=== PATIENT | female | born 1945 | race Caucasian/White ===

== ENCOUNTER 2017-04-13 00:27 | Emergency (ER) | payer MEDICARE, BC ==
[~2017-04-13] VITALS: Ht 167.6 cm; Wt 81.2 kg
[~2017-04-13 00:27] MED LIST: AMARYL 4MG. TAB4 MG PO; ASPIRIN 325MG325 MG PO; CARAFATE1 GM PO; FERROUS SULFAT325 M2 PO; FUROSEMIDE 20MG20 MG FT; GABAPENTIN100 MG PO; HYDROCHLOROTHIA25 M1 PO; LISINOPRIL 20MG20 MG; METFORMIN 500M500 M1 PO; OMEPRAZOLE40 MG PO; PIOGLITAZONE45 MG; PIOGLITAZONE45 MG PO; PRADAXA75 M1 PO
[2017-04-13 00:30] VITALS: BP 182/79
[2017-04-13] MEDS ORDERED: HCTZ/TRIAMTEREN1 CAP PO (00:45)
[2017-04-13] MEDS ORDERED: AMLO5TAB PO (00:46)
[2017-04-13] MEDS ORDERED: PRAVASTATIN SOD10 MG PO (00:46)
--- NOTE | 2017-04-13 01:15 | Emergency Room Report ---
History of Present Illness Time Seen by [id number] Presenting Problem in Triage Pt arrived:Walked Presenting Problem:C/O CANT TALK AND COUGH. STATES I FEEL FINE. ALSO SAYS SINCE IM HERE I HURT MY FOOT ON DAY, WALKING ACROSS THE FLOOR HEARD SOMETHING POP IN MY FOOT. SON ALSO STATES SHE HAS HAD TWO EPISODES OF AFTER EATING THEN HAVING ABDOMINAL PAIN THEN VOMITING WITH LAST EPISODE ON . Onset of symptoms date/time:/ or onset unknown for:MEDICAL HX UNKNOWN Treatment Prior to Arrival: TECHNICAL SPEC Provided by: Sepsis Risk Assessment: Temp: 97.9 B/P: 182/79 MAP: 113 Pulse: 103 Resp: 20 Recent fever? N Clinical Suspician of Infection? N Mental Status: 1 - Regular (Normal Baseline) Sepsis Risk:Possible Sepsis Risk Have you (or family members/close friends) recently traveled outside the [place]? N If Yes, where/when: Have you had exposure to infectious disease within the past month? N TB? Other? Specify: Source patient, RN notes reviewed, family, RN/MD Exam Limitations no limitations Comment This is a 71-year-old lady arriving to the emergency room together with her son with multiple complaints. She has a hoarse voice, since before (x4 days) without any associated productive cough or shortness of breath. She also had an episode of nausea and vomiting after eating a larger holiday meal, at , which is concerning to her. Additionally for the past 4 days she is also having LEFT foot pain, nontraumatic. Patient advised that she was walking across her kitchen and she heard a "cracking noise", fearful of possible fracture. ALLERGIES Coded Allergies: No Known Allergies (08/23/15) Home Medications Reported Medications Furosemide (Furosemide) 20 MG FT DAILY #30 Omeprazole (Omeprazole 40MG) 40 MG PO DAILY #30 Sucralfate (Carafate) 1 GM PO ACHS #120 Glimepiride (Amaryl 4MG) 4 MG PO DAILY LISINOPRIL (Lisinopril) PIOGLITAZONE HCL (Pioglitazone HCl) 45 MG PO DAILY #90 Gabapentin (Gabapentin 100MG) 100 MG PO DAILY #90 CAPSULE Metformin HCl (Metformin) 500 MG PO QHS Ferrous Sulfate (Ferrous Sulfate 325MG) 325 MG PO BID DABIGATRAN ETEXILATE MESYLATE (Pradaxa) 75 MG PO BID Hydrochlorothiazide W/Triamter (Triamterene-Hctz 37.5-25 MG Tb) 1 CAP PO DAILY #45 Pravastatin Sodium 10 MG PO BEDTIME #90 Amlodipine Besylate (Amlodipine) 5 MG PO DAILY #90 History Medical History General CAD? No Angina: No NM: No Hypertension? Yes Hyperlipidemia? No CHF? No DVT? No PE? No COPD? No Asthma? No Anemia? No GERD? Yes Gastric ulcers? No GI Bleed? Yes Hernia? No Thyroid Problems? No Hypothyroidism? No CVA? No Seizures? No Diabetes? Yes Insulin Dependent: No Insulin Pump: No Home FSBS? Yes Renal Insuffiency? No End Stage Renal Disease? No UTI? No Stones? No GB Disease: No Nephritic Syndrome? No Asplenia? No Hepatitis? No Sickle Cell Disease? No Arthritis? No Migraines? No Cataracts? No Glaucoma? No MRSA? No HIV? No TB? No Anxiety? No Depression? No Cancer? No More? Yes Additional hx: LEAKING VALVE Immunization Hx DT/Tetanus UNKNOWN Surgical Hx Previous Surgery?Y Cholecystectomy HYSTERECTOMY Social History Smoking Hx Smoker: Former Smoker Tobacco: No Packs/day < 1 Pack Alcohol Alcohol: No Review of Systems All Other Systems Reviewed and Negative ENT see HPI (hoarseness). Gastrointestinal nausea, vomiting (4 days ago) Musculoskeletal joint pain (LEFT foot pain) Physical Exam Vital Signs Vital Signs Date Time Temp Pulse Resp B/P Pulse O2 O2 Flow FiO2 Ox Delivery Rate 04/13 0115 97.9 103 20 182/79 96 04/13 0030 97.9 103 20 182/79 96 General Appearance normal appearance, WD/WN, no apparent distress, horse voice Ear, Nose, Throat hearing grossly normal, normal ENT inspection Respiratory Status Yes: trachea midline, chest symmetrical, non tender chest. No: respiratory distress. Lung Sounds bilateral: normal breath sounds, lungs clear. Cardiovascular normal exam, regular rate/rhythm, no peripheral edema, no gallop, no JVD, no murmur, no rub, normal peripheral pulses Gastrointestinal normal bowel sounds, normal exam, non tender, soft, no organomegaly Extremities normal range of motion, normal inspection, LEFT dorsal forefoot tender to palpation, no deformity Neurologic alert, normal exam Mental status normal mood/affect Skin intact, normal color, warm/dry Medical Decision Making LABS/Meds/Orders Pt receiving controlled substance in ED? No Comment 01:00am-patient appears in no acute distress, remains medically stable. Advised patient results obtained. Instructed patient to follow-up with for evaluation of her LEFT foot pain, suggestive of possible occult/stress fracture. Also instructed patient to follow-up with Dr. Perry regarding her episode of nausea and vomiting after ingesting a large meal, suggestive of possible gastroparesis (patient is a diabetic). Patient also describes episodes of feeling restless in her feet, which seemed suggestive of possible restless leg syndrome. Results/Orders Orders Procedure Date/time Status CHEST(2 VIEWS-NOT PORTABLE) 04/13 003 Active FOOT-LT-3 VIEWS 04/13 33 Active XRAY/CT/US XRAY/CT/US 1 XRAY chest XR interpretation by reviewed by me Xray Results no infiltrates, normal heart size, normal lung inflation riley XRAY/CT/US 2 XRAY foot (left) XR interpretation by reviewed by me Xray Results normal/NAD, no fracture seen Departure Departure Time of Disposition 0107 Disposition DC Home or Self Care(routine) Clinical Impression Primary Impression: Laryngitis Secondary Impressions: Foot pain Qualifiers: Laterality: left Qualified Code: M79.672 - Pain in left foot Gastroparesis Condition STABLE Referrals TRACY DE LOS SANTOS DPM: Today after leaving ER Patient Instructions DI for Foot Pain, DI for Gastroparesis, DI for Laryngitis Additional Instructions Please follow up with Dr Perry regarding your gastroparesis. See the fare register repairer (Dr De Los Santos) regarding your foot condition, within [place] next 2 days. Eat smaller meals, rather than larger servings. Take any OTC decongestants. Voice rest! Discharge Counseling Counseled pt/family regarding diagnosis, test results, medications/RX, home care, follow up needs Comment Please follow up with Dr Perry regarding your gastroparesis. See the fare register repairer (Dr De Los Santos) regarding your foot condition, within [place] next 2 days. Eat smaller meals, rather than larger servings. Take any OTC decongestants. Voice rest! ED Critical Care Critical Care No at [id number]
--- OUTSIDE RECORDS SUMMARY | 2017-04-13 01:25 | External Medical Summary Rpt ---
Author Author [facility] Organization [facility] Address Unknown Phone Unavailable Care Team Providers Care Supervisor Cell Room Name Role Phone Robert MOORE PCP [phone] Encounter [facility] [id number] Date(s): 01/08/16 - 02/01/16 [facility] [address] [place] [address]- Discharge Disposition: OP Self Care or Home Attending Physician: MARYAM VELAZCO MD Admitting Physician: AMRYAM VELAZCO MD Referring Physician: MARYAM VELAZCO MD Reason for Visit NONRHEUMATIC AORTIC (VALVE) STENOSIS Vital Signs No data available for this section Problem List Condition Effective Status Health Informant Dates Status 3 blood 11/16/15 Active clots from knee to ankle, right leg(Confirme d) Anemia(Confi Active patient rmed) Chronic Active cough(Confir med) CHF 2013 Active patient (congestive heart failure)(Con firmed) Diabetes Active II(Confirmed ) Carotid Active patient arterial disease(Conf irmed) Diverticulos 1985 Active is, mild(Confirm ed) Shortness of Active patient breath(Confi rmed) gerd(Confirm Active ed) GI Active Bleed(Confir med) Murmur(Confi Active patient rmed) Murmur(Confi Active patient rmed) Heart 07/04/15 Active valve(Confir med) hx, leg Active swelling(Con firmed) hypertension Active (Confirmed) Iron Active deficiency(C onfirmed) nerve pain Active in legs(Confirm ed) Peripheral Active neuropathy, bilateral feet(Confirm ed) Allergies, Adverse Reactions, Alerts No Known Allergies Medications No data available for this section Results GENERAL CHEMISTRY Most recent 1 to oldest [Reference Range]: Sodium Level 142 mmol/L [136-146 (02/01/16 3:23 PM) mmol/L] Potassium 4.0 mmol/L Level (02/01/16 3:23 PM) [3.5-5.1 mmol/L] Chloride 106 mmol/L Level (02/01/16 3:23 PM) [102-112 mmol/L] Carbon 29 mmol/L Dioxide (02/01/16 3:23 PM) Level [21-32 mmol/L] Anion Gap 11 [9-20] (02/01/16 3:23 PM) Glucose 86 mg/dL Level (02/01/16 3:23 PM) [74-106 mg/dL] Blood Urea 9 mg/dL Nitrogen (02/01/16 3:23 PM) [7-22 mg/dL] Creatinine 0.70 mg/dL Level (02/01/16 3:23 PM) [0.55-1.02 mg/dL] eGFR 100 mL/min/1.73m2 [>=60 (02/01/16 3:23 PM) mL/min/1.73m 2] eGFR 82 mL/min/1.73m2 NonAfrican (02/01/16 3:23 PM) [>=60 mL/min/1.73m 2] Bun/Creatini 12.9 ne (02/01/16 3:23 PM) [8.0-20.0] Calcium 9.4 mg/dL Level (02/01/16 3:23 PM) [8.5-10.1 mg/dL] HEMATOLOGY Most recent 1 to oldest [Reference Range]: WBC 5.8 K/uL [4.0-10.0 (02/01/16 3:23 PM) K/uL] RBC 4.04 Million/uL [3.93-5.22 (02/01/16 3:23 PM) Million/uL] Hgb 11.9 g/dL [11.2-15.7 (02/01/16 3:23 PM) g/dL] Hct 37.4 % [34.1-44.9 (02/01/16 3:23 PM) %] MCV 92.6 fL [79.0-94.8 (02/01/16 3:23 PM) fL] MCH 29.5 pg [25.6-32.2 (02/01/16 3:23 PM) pg] MCHC 31.8 Gram/dL [32.2-36.5 *LOW* Gram/dL] (02/01/16 3:23 PM) Platelet 187 K/uL Count (02/01/16 3:23 PM) [163-369 K/uL] MPV 10.4 fL [9.4-12.4 (02/01/16 3:23 PM) fL] RDW 14.9 % [11.6-14.4 *HI* %] (02/01/16 3:23 PM) Neut % 61.3 % [34.0-71.0 (02/01/16 3:23 PM) %] Neut # 3.54 K/uL [1.56-6.13 (02/01/16 3:23 PM) K/uL] Lymph % 28.7 % [19.3-53.1 (02/01/16 3:23 PM) %] Lymph # 1.66 x10(3)/uL [1.00-3.90 (02/01/16 3:23 PM) x10(3)/uL] Cooper % 6.6 % [3.0-9.0 %] (02/01/16 3:23 PM) Cooper # 0.38 K/uL [0.16-1.00 (02/01/16 3:23 PM) K/uL] Eos % 2.2 % [0.0-7.0 %] (02/01/16 3:23 PM) Eos # 0.13 x10(3)/uL [0.00-0.80 (02/01/16 3:23 PM) x10(3)/uL] Baso % 0.9 % [0.0-1.5 %] (02/01/16 3:23 PM) Baso # 0.05 x10(3)/uL [0.00-0.20 (02/01/16 3:23 PM) x10(3)/uL] Slide Review No (02/01/16 3:23 PM) IG# 0.02 x10(3)/uL [0.00-0.05 (02/01/16 3:23 PM) x10(3)/uL] IG% 0.30 % [0.00-0.60 (02/01/16 3:23 PM) %] Immunizations No data available for this section Procedures No data available for this section Social History Social History Response Type Smoking Status Former smoker; Smoking Frequency Within Last 30 Days None; Tobacco Use Within Last Twelve Months No; Years of Tobacco Use 50; Packs/Tins Daily 1; Used Tobacco, but Quit Yes; Second Hand Smoke Exposure No; Smokeless Tobacco Use in Last 30 Days No; Smokeless Tobacco Use History None Assessment and Plan No data available for this section Hospital Discharge Instructions No data available for this section
--- OUTSIDE RECORDS SUMMARY | 2017-04-13 01:25 | External Medical Summary Rpt ---
Author Author [facility] Organization [facility] Address Unknown Phone Unavailable Care Team Providers Care Job Setter Name Role Phone Robert MOORE PCP [phone] Encounter [facility] [id number] Date(s): 12/31/15 - 01/08/16 [facility] [address] [place] [id number]- Discharge Diagnosis: Aortic stenosis, severe Discharge Disposition: Left Against Medical Advice IP Attending Physician: GARY MINOR MD Admitting Physician: GARY MINOR MD Referring Physician: MARYAM VELAZCO MD Reason for Visit NONRHEUMATIC AORTIC (VALVE) STENOSIS Vital Signs Most recent 1 2 3 to oldest [Reference Range]: Temperature Axillary Oral Oral (01/08/16 Source (01/08/16 8:00 AM) (01/08/16 4:00 AM) 12:00 AM) Temperature Fahrenheit Fahrenheit Fahrenheit Mode (01/08/16 8:00 AM) (01/08/16 4:00 AM) (01/08/16 12:00 AM) Temperature, 98.0 Deg F 98.4 Deg F 98.5 Deg F Fahrenheit (01/08/16 8:00 AM) (01/08/16 4:00 AM) (01/08/16 12:00 [96.8-99.7 AM) Deg F] Clinical 36.7 Deg C 36.9 Deg C 36.9 Deg C Temperature, (01/08/16 8:00 AM) (01/08/16 4:00 AM) (01/08/16 12:00 C AM) Pulse Method Arterial line Pulse Oximetry Pulse Oximetry (01/07/16 9:17 AM) (01/07/16 8:34 AM) (01/02/16 1:47 PM) Pulse Rhythm Regular Regular (01/07/16 9:17 AM) (01/07/16 8:34 AM) Heart Rate, 58 bpm Apical *LOW* [60-100 bpm] (01/07/16 9:17 AM) Peripheral 58 bpm 91 bpm Pulse Rate *LOW* (01/02/16 1:47 PM) [60-100 bpm] (01/07/16 9:17 AM) Heart Rate 62 bpm 61 bpm 57 bpm Monitored (01/08/16 2:00 PM) (01/08/16 1:00 PM) *LOW*(01/08/16 [60-100 bpm] 12:00 PM) Respiratory 33 Breaths/Min 40 Breaths/Min 26 Breaths/Min Rate [14-20 *HI*(01/08/16 *HI*(01/08/16 *HI* Breaths/Min] 11:00 AM) 10:00 AM) (01/08/16 9:00 AM) Blood Arm, left upper Arm, left upper Arm, right upper Pressure (01/07/16 9:17 AM) (01/07/16 8:34 AM) (01/02/16 1:47 PM) Location Blood Arterial Pressure Non-Invasive BP Non-Invasive BP Pressure Line (01/07/16 Device (01/07/16 Device (01/02/16 Source 9:17 AM) 8:34 AM) 1:47 PM) Blood Side, Right Side, Left Sitting Pressure (01/07/16 9:17 AM) (01/07/16 8:34 AM) (01/02/16 1:47 PM) Position Blood 155/67 mmHg 152/65 mmHg 154/70 mmHg Pressure *HI* *HI* *HI*(01/08/16 [90-140/60-9 (01/08/16 2:00 PM) (01/08/16 1:00 PM) 12:00 PM) 0 mmHg] Mean 96 93 101 (01/08/16 Arterial (01/08/16 2:00 PM) (01/08/16 1:00 PM) 12:00 PM) Pressure (MAP)-BMDI Blood 150/43 mmHg 129/33 mmHg 147/46 mmHg Pressure *HI*(01/08/16 (01/08/16 9:00 AM) *HI* Invasive 10:00 AM) (01/08/16 8:00 AM) [90-140/60-9 0 mmHg] Mean 73 mmHg (01/08/16 60 mmHg 79 mmHg Arterial 10:00 AM) (01/08/16 9:00 AM) (01/08/16 8:00 AM) Pressure, Line 1 Systolic 213 Blood (01/07/16 8:34 AM) Pressure, Unassisted Diastolic 71 Blood (01/07/16 8:34 AM) Pressure, Unassisted Oxygen 95 % 98 % 96 % (01/08/16 Saturation (01/08/16 2:00 PM) (01/08/16 1:00 PM) 12:00 PM) [94-100 %] Oxygen Room air (01/08/16 Nasal cannula Nasal cannula Therapy Mode 11:00 AM) (01/08/16 8:00 AM) (01/08/16 7:00 AM) Oxygen Flow 2 Liter/Min 2 Liter/Min 2 Liter/Min Rate (01/08/16 8:00 AM) (01/08/16 7:00 AM) (01/08/16 6:00 AM) Problem List Condition Effective Status Health Informant [...] Adverse Reactions, Alerts No Known Allergies Medications aspirin 81 mg, Oral, Every Day, Refills: 0 dabigatran (Pradaxa) 75 mg, Oral, Two Times A Day, Refills: 0 Results BLOOD GASES Most recent 1 2 3 to oldest [Reference Range]: pH Art POC 7.289 [7.350-7.450 *LOW*(01/07/16 ] 10:07 AM) pCO2 Art POC 62.6 mmHg [41.0-51.0 *HI*(01/07/16 mmHg] 10:07 AM) pO2 Art POC 170.0 mmHg [80.0-105.0 *HI*(01/07/16 mmHg] 10:07 AM) HCO3 Art POC 30.0 mmol/L [22.0-26.0 *HI*(01/07/16 mmol/L] 10:07 AM) tCO2 Art POC 32.0 mmol/L [23.0-27.0 *HI*(01/07/16 mmol/L] 10:07 AM) BE Art POC 3.0 mmol/L [-2.0-3.0 (01/07/16 10:07 mmol/L] AM) sO2 Art POC 99.0 % [95.0-98.0 *HI*(01/07/16 %] 10:07 AM) GENERAL CHEMISTRY Most recent 1 2 3 to oldest [Reference Range]: Sodium Level 142 mmol/L 142 mmol/L 141 mmol/L [136-146 (01/08/16 3:03 AM) (01/07/16 11:34 (01/02/16 3:38 PM) mmol/L] AM) Potassium 3.3 mmol/L 3.6 mmol/L 3.7 mmol/L Level *LOW*(01/08/16 (01/07/16 11:34 (01/02/16 3:38 PM) [3.5-5.1 3:03 AM) AM) mmol/L] Chloride 107 mmol/L 109 mmol/L 105 mmol/L Level (01/08/16 3:03 AM) (01/07/16 11:34 (01/02/16 3:38 PM) [102-112 AM) mmol/L] Carbon 28 mmol/L 24 mmol/L 30 mmol/L Dioxide (01/08/16 3:03 AM) (01/07/16 11:34 (01/02/16 3:38 PM) Level [21-32 AM) mmol/L] Anion Gap 10 (01/08/16 3:03 13 (01/07/16 11:34 10 (01/02/16 3:38 [9-20] AM) AM) PM) Glucose 161 mg/dL 156 mg/dL 125 mg/dL Level *HI*(01/08/16 3:03 *HI*(01/07/16 *HI*(01/02/16 3:38 [74-106 AM) 11:34 AM) PM) mg/dL] Blood Urea 8 mg/dL (01/08/16 8 mg/dL (01/07/16 10 mg/dL (01/02/16 Nitrogen 3:03 AM) 11:34 AM) 3:38 PM) [7-22 mg/dL] Creatinine 0.60 mg/dL 0.60 mg/dL 0.80 mg/dL Level (01/08/16 3:03 AM) (01/07/16 11:34 (01/02/16 3:38 PM) [0.55-1.02 AM) mg/dL] eGFR 119 mL/min/1.73m2 119 mL/min/1.73m2 86 mL/min/1.73m2 [>=60 (01/08/16 3:03 (01/07/16 11:34 (01/02/16 3:38 PM) mL/min/1.73m AM) AM) 2] eGFR 99 mL/min/1.73m2 99 mL/min/1.73m2 71 mL/min/1.73m2 NonAfrican (01/08/16 3:03 AM) (01/07/16 11:34 (01/02/16 3:38 PM) [>=60 AM) mL/min/1.73m 2] Bun/Creatini 13.3 (01/08/16 13.3 (01/07/16 12.5 (01/02/16 ne 3:03 AM) 11:34 AM) 3:38 PM) [8.0-20.0] Calcium 8.2 mg/dL 8.0 mg/dL 9.4 mg/dL Level *LOW*(01/08/16 1*LOW*(01/07/16 (01/02/16 3:38 PM) [8.5-10.1 3:03 AM) 11:34 AM) mg/dL] Protein 7.4 Gram/dL Total (01/02/16 3:38 PM) [6.4-8.2 Gram/dL] Albumin 4.0 Gram/dL Level (01/02/16 3:38 PM) [3.4-5.0 Gram/dL] Globulin 3.4 Gram/dL [1.5-4.5 (01/02/16 3:38 PM) Gram/dL] A/G Ratio 1.2 (01/02/16 3:38 [1.1-2.5] PM) Bilirubin 0.5 mg/dL Total (01/02/16 3:38 PM) [0.2-1.0 mg/dL] Alk Phos 82 Units/Liter [27-136 (01/02/16 3:38 PM) Units/Liter] AST [5-37 16 Units/Liter Units/Liter] (01/02/16 3:38 PM) ALT [12-78 18 Units/Liter Units/Liter] (01/02/16 3:38 PM) Magnesium 2.0 mg/dL Level (01/02/16 3:38 PM) [1.5-2.4 mg/dL] Sodium POC 140 mmol/L [138-146 (01/07/16 10:07 mmol/L] AM) Potassium 3.4 mmol/L POC [3.5-4.9 *LOW*(01/07/16 mmol/L] 10:07 AM) Glucose POC 181 mg/dL [70-105 *HI*(01/07/16 mg/dL] 10:07 AM) Glucose POC2 181 mg/dL 188 mg/dL 164 mg/dL [60-110 *HI*(01/08/16 2*HI*(01/07/16 *HI*(01/07/16 mg/dL] 11:29 AM) 8:02 PM) 11:18 AM) Ca Ioniz POC 1.35 mmol/L [1.12-1.32 *HI*(01/07/16 mmol/L] 10:07 AM) Hgb A1C 6.90 % [4.20-6.30 *HI*(01/02/16 3:38 %] PM) eAVG Glucose 151 mg/dL *NA*(01/02/16 3:38 PM) 1Result Comment: Released without repeat.2Result Comment: Nurse Notified of ResultCARDIAC SPECIFIC MARKERS Most recent 1 2 3 to oldest [Reference Range]: Troponin I <0.015 ng/mL Ultra (01/02/16 3:38 PM) [0.015-0.045 ng/mL] CK MB 1.60 ng/mL [0.50-3.60 (01/02/16 3:38 PM) ng/mL] ProBNP 1310 pg/mL [0-125 *HI*(01/02/16 3:38 pg/mL] PM) HEMATOLOGY Most recent 1 2 3 to oldest [Reference Range]: WBC 7.7 K/uL (01/08/16 5.7 K/uL (01/02/16 [4.0-10.0 3:03 AM) 3:38 PM) K/uL] RBC 3.66 Million/uL 4.26 Million/uL [3.93-5.22 *LOW*(01/08/16 (01/02/16 3:38 PM) Million/uL] 3:03 AM) Hgb 10.8 g/dL 8.8 g/dL 12.5 g/dL [11.2-15.7 *LOW*(01/08/16 *LOW*(01/07/16 (01/02/16 3:38 PM) g/dL] 3:03 AM) 11:34 AM) Hct 33.6 % 27.9 % 38.2 % (01/02/16 [34.1-44.9 *LOW*(01/08/16 *LOW*(01/07/16 3:38 PM) %] 3:03 AM) 11:34 AM) MCV 91.8 fL (01/08/16 89.7 fL (01/02/16 [79.0-94.8 3:03 AM) 3:38 PM) fL] MCH 29.5 pg (01/08/16 29.3 pg (01/02/16 [25.6-32.2 3:03 AM) 3:38 PM) pg] MCHC 32.1 Gram/dL 32.7 Gram/dL [32.2-36.5 *LOW*(01/08/16 (01/02/16 3:38 PM) Gram/dL] 3:03 AM) Platelet 168 K/uL (01/08/16 138 K/uL 242 K/uL (01/02/16 Count 3:03 AM) *LOW*(01/07/16 3:38 PM) [163-369 11:34 AM) K/uL] MPV 10.3 fL (01/08/16 10.3 fL (01/02/16 [9.4-12.4 3:03 AM) 3:38 PM) fL] RDW 15.3 % 15.7 % [11.6-14.4 *HI*(01/08/16 3:03 *HI*(01/02/16 3:38 %] AM) PM) Hematocrit 31.0 % POC *LOW*(01/07/16 [38.0-51.0 10:07 AM) %] Hemoglobin 10.5 Gram/dL POC *LOW*(01/07/16 [12.0-17.0 10:07 AM) Gram/dL] Slide Review No (01/08/16 3:03 No (01/02/16 3:38 AM) PM) COAGULATION Most recent 1 2 3 to oldest [Reference Range]: PT [9.2-11.0 11.2 Second(s) Second(s)] *HI*(01/02/16 3:38 PM) INR 1.0 (01/02/16 3:38 [0.0-1.1] PM) PTT 32.7 Second(s) [24.2-28.8 *HI*(01/02/16 3:38 Second(s)] PM) ACT POC 245 Second(s) 343 Second(s) 134 Second(s) [79-149 *HI*(01/07/16 *HI*(01/07/16 (01/07/16 10:06 Second(s)] 11:09 AM) 10:33 AM) AM) URINALYSIS Most recent 1 2 3 to oldest [Reference Range]: Urine Type U CleanCatch (01/02/16 3:47 PM) Urine Color Yellow *NA*(01/02/16 3:47 PM) Urine Clear (01/02/16 Appearance 3:47 PM) Urine 1.007 (01/02/16 Specific 3:47 PM) Holderness [1.005-1.030 ] Urine pH 8.0 (01/02/16 3:47 Dipstick PM) [6.0-8.0] Urine Trace Leukocyte *ABN*(01/02/16 Esterase 3:47 PM) [Negative] Urine Negative (01/02/16 Nitrite 3:47 PM) [Negative] Urine Negative (01/02/16 Protein 3:47 PM) Dipstick [Negative] Urine Negative (01/02/16 Glucose 3:47 PM) Dipstick [Negative] Urine Negative (01/02/16 Ketones 3:47 PM) Dipstick [Negative] Urine 0.2 EU/dL Urobilinogen (01/02/16 3:47 PM) Dipstick Urine Negative (01/02/16 Bilirubin 3:47 PM) Dipstick [Negative] Urine Blood Trace Dipstick *ABN*(01/02/16 [Negative] 3:47 PM) ENDOCRINOLOGY Most recent 1 2 3 to oldest [Reference Range]: T4 Total 10.8 mcg/mL [4.8-13.9 (01/02/16 3:38 PM) mcg/mL] TSH 2.730 mcInt [0.358-3.740 Units/mL (01/02/16 mcInt 3:38 PM) Units/mL] BLOOD BANK Most recent 1 2 3 to oldest [Reference Range]: ABO/Rh A NEG (ECHO) *Unknown*(01/07/16 8:22 AM) Antibody Negative ABSC Screen (01/07/16 8:22 AM) RBC Product Done Charted RBC Ready Ready (01/07/16 9:37 AM) (01/07/16 8:16 AM) # of Units 2 *NA*(01/07/16 8:16 AM) (01/07/16 8:16 AM) Immunizations No data available for this section Procedures Procedure Date Related Body Site Diagnosis GI Bleed 09/01 dental extraction, full Social History Social History Response Type Smoking Status Former smoker; Smoking Frequency Within Last 30 Days None; Tobacco Use Within Last Twelve Months No; Years of Tobacco Use 50; Packs/Tins Daily 1; Used Tobacco, but Quit Yes; Second Hand Smoke Exposure No; Smokeless Tobacco Use in Last 30 Days No; Smokeless Tobacco Use History None Assessment and Plan Extracted from: Title: CTS POD#1 Author: RAY ENRIQUE, Date: 01/08/16 KARON Basic InformationPOD#1 S/P1. Transcatheter aortic valve replacement using a 26-mm Ramirez Ange 3 via percutaneous right common femoral artery approach.2. Ascending aortic and root aortography.3. Placement of temporary transvenous pacing wires via left common femoral vein.The pt is pleasant and voices no complaints. Family memebers are present at his bedside and were updated by Dr. Minor this morning. The pt is pleasant and voices no complaints. Family memebers are present at his bedside and were updated by Dr. Minor this morning. Health Status Allergies: Allergies (1) ActiveReaction No Known AllergiesNone Documented Physical ExaminationIntake and Output 24 hour intake: Total 963 ml 24 hour output: Total 5065 mlVS/MeasurementsVital Measurements01/08/2016 8:00 EDT Temperature, Fahrenheit 98.0 Deg F Heart Rate Monitored 61 bpm Systolic Blood Pressure 152 mmHg HI Diastolic Blood Pressure 73 mmHg Mean Arterial Pressure (MAP)-BMDI 105 Systolic BP, Arterial Line 1 147 mmHg HI Diastolic BP, Arterial Line 1 46 mmHg LOW Mean Arterial Pressure, Line 1 79 mmHg Oxygen Saturation 97 % Oxygen Therapy Mode Nasal cannula Oxygen Flow Rate 2 Liter/MinGeneral: Alert and oriented, No acute distress.HENT: Normocephalic.Neck: Supple.Respiratory: Lungs are clear to auscultation.Cardiovascular: Normal rate, Regular rhythm, S1, S2.Musculoskeletal: Lower extremity exam: Palpable bilateral DP pulses.Integumentary: Warm, Dry, [place].Neurologic: Alert, Oriented.Psychiatric: Cooperative, Appropriate mood & affect. General: Alert and oriented, No acute distress. HENT: Normocephalic. Neck: Supple. Respiratory: Lungs are clear to auscultation. Cardiovascular: Normal rate, Regular rhythm, S1, S2. Musculoskeletal: Lower extremity exam: Palpable bilateral DP pulses. Integumentary: Warm, Dry, [place]. Neurologic: Alert, Oriented. Psychiatric: Cooperative, Appropriate mood & affect. Review / ManagementResults review: All Results01/08/2016 3:03 EDT Sodium Level 142 mmol/L Potassium Level 3.3 mmol/L LOW Chloride Level 107 mmol/L Carbon Dioxide Level 28 mmol/L Anion Gap 10 Glucose Level 161 mg/dL HI Blood Urea Nitrogen 8 mg/dL Creatinine Level 0.60 mg/dL eGFR 119 mL/min/1.73m2 eGFR NonAfrican 99 mL/min/1.73m2 Bun/Creatinine 13.3 Calcium Level 8.2 mg/dL LOW WBC 7.7 K/uL RBC 3.66 Million/uL LOW Hgb 10.8 g/dL LOW Hct 33.6 % LOW MCV 91.8 fL MCH 29.5 pg MCHC 32.1 Gram/dL LOW Platelet Count 168 K/uL MPV 10.3 fL RDW 15.3 % HI .General Management: Deep vein thrombosis prophylaxis, Ambulatory. MPV 10.3 fL RDW 15.3 % HI . General Management: Deep vein thrombosis prophylaxis, Ambulatory. Impression and Plan Plan: -D/C Home Today -F/U with Dr. Minor in one month -Resume Home Meds as indicated on D/C Med rec -A heart healthy diet is recommended -Activity: Resume normal activity of daily living Diagnosis H/O: Diastolic congestive heart failure - Pre-Op Diagnosis, Medical. Diabetes mellitus type 2 in nonobese - Pre-Op Diagnosis, Medical. Peripheral neuropathy - Pre-Op Diagnosis, Medical. Aortic stenosis, severe - Admitting, Medical. Aortic stenosis, severe - Discharge, Medical. Iron deficiency anemia - Pre-Op Diagnosis, Medical. GERD (gastroesophageal reflux disease) - Pre-Op Diagnosis, Medical. HTN (hypertension) - Pre-Op Diagnosis, Medical. Extracted from: Title: Cardiology, Author: TRISHA HERNANDEZ Date: 01/08/16 [facility] Daily Progress Note SubjectiveNAD, awake and alert. No complaints of chest pain or SOA. Sinus Bradycardia with HR 50's. VSS. Not on pressors. Health StatusAllergies:Allergic Reactions (Selected)No Known Allergies,Allergies (1) ActiveReactionNo Known AllergiesNone DocumentedCurrent medications: (Selected)Inpatient MedicationsOrderedAmbien: 5 mg, Oral, At Bedtime, PRN: SleepAncef: 2 Gram, 50 mL, 100 mL/Hr, IV Piggyback, PREOPD5/[id number].LX 1,000 mL: 30 mL/Hr, IntraVENousDulcolax Laxative: 10 mg, Rectal, Daily, PRN: ConstipationMilk of Magnesia 8% oral suspension: 30 mL, Oral, Daily, PRN: OfijnwdpcdxyNrIb480Wsv.LX 500 mL: 50 mL/Hr, IntraVENousNitrostat: 0.4 mg, SubLINgual, Q5Min, PRN: Chest PainNormal Saline Flush: 10 mL, IV Push, [id number]: 75 mg, Oral, DailySenokot S: 1 Tab, Oral, BIDZofran: 4 mg, IV Push, Q6H, PRN: Nausea/Vomitingaspirin: 81 mg, Oral, Dailycalcium gluconate: 1 Gram, 10 mL, 60 mL/Hr, IV Piggyback, Daily, PRN: Other (See Comment)calcium gluconate: 2 Gram, 20 mL, 120 mL/Hr, IV Piggyback, Daily, PRN: Other (See Comment)calcium gluconate: 2 Gram, 20 mL, 120 mL/Hr, IV Piggyback, Q12H, PRN: Other (See Comment)[id number].LX 1,000 mL: 10 mL/Hr, IntraVENouslidocaine 1% injectable solution: 0.5 mL, IntraDermal, 1-Time, PRN: Other (See Comment)magnesium sulfate: 2 Gram, 50 mL, 25 mL/Hr, IV Piggyback, Daily, PRN: Other (See Comment)magnesium sulfate: 2 Gram, 50 mL, 25 mL/Hr, IV Piggyback, Q2H, PRN: Other (See Comment)midazolam: 1 mg, IV Push, PREOP, PRN: Anxietymorphine: 2 mg, IV Push, Q30Min, PRN: Pain (Severe 7-10)niCARdipine injection 25 mg + Sodium Chloride 0.9% 250 mL: Titrate, IntraVENouspotassium chloride 10 mEq/50 mL intravenous solution: 10 mEq, 50 mL, 50 mL/Hr, IV Piggyback, Q1H, PRN: Other (See Comment)potassium chloride 20 mEq oral tablet, extended release: 20 mEq, 1 Tab, Oral, Q2H, PRN: Other (See Comment)potassium chloride 20 mEq oral tablet, extended release: 60 mEq, 3 Tab, Oral, Q2H, PRN: Other (See Comment),Home Medications (12) ActiveActos 45 mg oral tablet 45 mg = 1 Tab, Oral, DailyCalcium 600+D 1 Tab, Oral, BIDferrous sulfate 325 mg (65 mg elemental iron) oral tablet , Oralglimepiride 4 mg oral tablet 4 mg = 1 Tab, Oral, DailyLasix 20 mg oral tablet 20 mg = 1 Tab, Oral, Dailylisinopril 20 mg oral tablet 20 mg = 1 Tab, Oral, BIDmetFORMIN 500 mg oral tablet See Instructions, Oral, BIDNeurontin 100 mg oral capsule 100 mg = 1 Cap, Oral, At Bedtimeomeprazole 40 mg, Oral, DailyPradaxa 75 mg, Oral, BIDsucralfate 1 g oral tablet 1 Gram = 1 Tab, Oral, BIDVitamin D3 1000 intl units oral capsule 1,000 Int Units = 1 Cap, Oral, DailyProblem list:All Problems3 blood clots from knee to ankle, right leg / ConfirmedAnemia / SNOMED CT 095041873 / ConfirmedChronic cough / SNOMED CT 246884173 / ConfirmedCHF (congestive heart failure) / SNOMED CT 32665986 / ConfirmedDiabetes II / SNOMED CT 436905074 / ConfirmedCarotid arterial disease / SNOMED CT 7005097967 / ConfirmedDiverticulosis, mild / SNOMED CT 0498534763 / ConfirmedShortness of breath / SNOMED CT 720871255 / Confirmedgerd / ConfirmedGI Bleed / ConfirmedMurmur / SNOMED CT 318506124 / ConfirmedMurmur / SNOMED CT 832777646 / ConfirmedHeart valve / SNOMED CT 916036127 / Confirmedhx, leg swelling / Confirmedhypertension / ConfirmedIron deficiency / SNOMED CT 16011284 / Confirmednerve pain in legs / ConfirmedPeripheral neuropathy, bilateral feet / SNOMED CT 9333744205 / Confirmed,Active Problems (18)3 blood clots from knee to ankle, right leg Anemia Carotid arterial disease CHF (congestive heart failure) Chronic cough Diabetes II Diverticulosis, mild gerd GI Bleed Heart valve hx, leg swelling hypertension Iron deficiency Murmur Murmur nerve pain in legs Peripheral neuropathy, bilateral feet Shortness of breath CHF (congestive heart failure) / SNOMED CT 95529097 / Confirmed Diabetes II / SNOMED CT 094998187 / Confirmed Carotid arterial disease / SNOMED CT 0921487832 / Confirmed Diverticulosis, mild / SNOMED CT 3159718908 / Confirmed Shortness of breath / SNOMED CT 481165484 / Confirmed gerd / Confirmed GI Bleed / Confirmed Murmur / SNOMED CT 195355805 / Confirmed Murmur / SNOMED CT 735599802 / Confirmed Heart valve / SNOMED CT 467285779 / Confirmed hx, leg swelling / Confirmed hypertension / Confirmed Iron deficiency / SNOMED CT 16020948 / Confirmed nerve pain in legs / Confirmed Peripheral neuropathy, bilateral feet / SNOMED CT 6313641038 / Confirmed, Active Problems (18) 3 blood clots from knee to ankle, right leg Anemia Carotid arterial disease CHF (congestive heart failure) Chronic cough Diabetes II Diverticulosis, mild gerd GI Bleed Heart valve hx, leg swelling hypertension Iron deficiency Murmur Murmur nerve pain in legs Peripheral neuropathy, bilateral feet Shortness of breath ObjectiveIntake and Output 24 hour intake: Total 963 ml 24 hour output: Total 5,025 mlVS/MeasurementsVital Measurements01/08/2016 5:00 EDT Heart Rate Monitored 51 bpm LOW Respiratory Rate 28 Breaths/Min HI Systolic Blood Pressure 134 mmHg Diastolic Blood Pressure 60 mmHg Mean Arterial Pressure (MAP)-BMDI 86 Systolic BP, Arterial Line 1 125 mmHg Diastolic BP, Arterial Line 1 34 mmHg LOW Mean Arterial Pressure, Line 1 60 mmHg Oxygen Saturation 98 % Oxygen Therapy Mode Nasal cannula Oxygen Flow Rate 2 Liter/Min01/08/2016 4:00 EDT Temperature Source Oral Temperature Mode Fahrenheit Temperature, Fahrenheit 98.4 Deg F Clinical Temperature, C 36.9 Deg C,Vitals Signs (last 24 hrs) Last Charted Minimum MaximumTemp 98.4 (JAN 07 04:00)L 95 (JAN 06 11:00)98 (JAN 06 16:00)Apical HR L 58 (JAN 06 09:17)L 58 (JAN 06 09:17)L 58 (JAN 06 09:17)Mon HR 51 (JAN 07 05:00)50 (JAN 06 19:00)83 (JAN 06 18:00)Periph HR 58 (JAN 06 09:17)58 (JAN 06 09:17)58 (JAN 06 09:17)Resp Rate H 28 (JAN 07 05:00)14 (JAN 06 12:30)H 28 (JAN 07 05:00)SBP 134 (JAN 07 05:00)107 (JAN 06 13:30)H 187 (JAN 06 08:34)DBP 60 (JAN 07 05:00)L 50 (JAN 06 12:30)88 (JAN 06 08:34)MAP 60 (JAN 07 05:00)60 (JAN 07 05:00)114 (JAN 06 20:00)SpO2 98 (JAN 07 05:00)L 92 (JAN 06 12:45)100 (JAN 06 11:25)General: Alert and oriented, No acute distress.Eye: Pupils are equal, round and reactive to light, Extraocular movements are intact.HENT: Normocephalic, Oral mucosa is moist.Neck: No jugular venous distention.Respiratory: Lungs are clear to auscultation, Respirations are non-labored, Breath sounds are equal, Symmetrical chest wall expansion.Cardiovascular: Regular rhythm, No murmur, No gallop, Good pulses equal in all extremities, Normal peripheral perfusion, No edema, Sinus Bradycardia.Gastrointestinal: Soft, Non-tender, Non-distended, Normal bowel sounds.Genitourinary: Support: Urinary catheter ( Indwelling, Drainage ( Clear ) ).Musculoskeletal: Normal range of motion, Normal strength, No deformity.Integumentary: Warm, Dry, [place], No rash, Groin sites without bleeding or Hematoma.Neurologic: Alert, Oriented, No focal deficits.Psychiatric: Cooperative, Appropriate mood & affect. Integumentary: Warm, Dry, [place], No rash, Groin sites without bleeding or Hematoma. Neurologic: Alert, Oriented, No focal deficits. Psychiatric: Cooperative, Appropriate mood & affect. Results Review JAN 07 03:03 142 | 107 | 8 / H 161 L 3.3 | 28 | 0.60 \\ Cardiac Markers (Current Encounter/Past 24 Hours) No Cardiac Marker Results Found (Past 24 Hours) No Radiology Results Found General results Today's results 01/08/2016 3:03 EDT Sodium Level 142 mmol/L Potassium Level 3.3 mmol/L LOW Chloride Level 107 mmol/L Carbon Dioxide Level 28 mmol/L Anion Gap 10 Glucose Level 161 mg/dL HI Blood Urea Nitrogen 8 mg/dL Creatinine Level 0.60 mg/dL eGFR 119 mL/min/1.73m2 eGFR NonAfrican 99 mL/min/1.73m2 Bun/Creatinine 13.3 Calcium Level 8.2 mg/dL LOW WBC 7.7 K/uL Hgb 10.8 g/dL LOW Hct 33.6 % LOW Platelet Count 168 K/uL Impression and PlanIMPRESSION:1. VHD w Severe ASA. 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 Temp. Transvenous pacing wire 01/07/16 (DC'd)2. HTN3. DM-II / Diabetic Peripheral Neuropathy4. Hx GIB5. Carotid Artery Stenosis (R ICA 50-69%)6. PVD w Recent history of RLE Ischemia 11/16/2015A. S/P Embolectomy of R Femoral Artery and R Popliteal Artery and Angioplasty of R Popliteal Artery per Dr. Cunningham 11/16/20157. GERD8. Anemia9. [id number]. HypocalcemiaPLAN:1. Electrolyte replacement per protocol.2. Remove invasive lines / Transfer to Tele later today.3. Possible home this afternoon or tomorrow.4. Resume Pradaxa Tomorrow. 6. PVD w Recent history of RLE Ischemia 11/16/2015 A. S/P Embolectomy of R Femoral Artery and R Popliteal Artery and Angioplasty of R Popliteal Artery per Dr. Cunningham 11/16/2015 7. GERD 8. Anemia 9. Hypokalemia 10. Hypocalcemia PLAN: 1. Electrolyte replacement per protocol. 2. Remove invasive lines / Transfer to Tele later today. 3. Possible home this afternoon or tomorrow. 4. Resume Pradaxa Tomorrow. Hospital Discharge Instructions Patient EducationAortic Valve Replacement Type 2 Diabetes Mellitus, Adult, [id number]"
--- OUTSIDE RECORDS SUMMARY | 2017-04-13 01:25 | External Medical Summary Rpt ---
Author Author [facility] Organization [facility] Address Unknown Phone Unavailable Care Team Providers Care Front Office Coordinator Name Role Phone Sascha MOORE PCP [phone] Encounter [facility] NAYA [id number] Date(s): 08/26/16 - 08/26/16 [facility] [address] [place] [address]- Discharge Disposition: OP Self Care or Home Attending Physician: MARYAM VELAZCO MD-CAR Admitting Physician: MARYAM VELAZCO MD-CAR Referring Physician: MARYAM VELAZCO MD-CAR Reason for Visit PAIN IN RIGHT LEG Vital Signs No data available for this [...] 81 mg, Oral, Every Day, Refills: 0 calcium-vitamin D (Calcium 600+D) 1 Tab, Oral, Two Times A Day, Refills: 0 cholecalciferol (Vitamin D3 1000 intl units oral capsule)1 Cap, Oral, Every Day, Refills: 0 dabigatran (Pradaxa) 75 mg, Oral, Two Times A Day, Refills: 0 ferrous sulfate (ferrous sulfate 325 mg (65 mg elemental iron) oral tablet) Oral, every 3rd day, Refills: 0 furosemide (Lasix 20 mg oral tablet) 1 Tab, Oral, Every Day, Refills: 0 gabapentin (Neurontin 100 mg oral capsule) 1 Cap, Oral, At Bedtime, Refills: 0 glimepiride (glimepiride 4 mg oral tablet) 1 Tab, Oral, Every Day, Refills: 0 lisinopril (lisinopril 20 mg oral tablet) 1 Tab, Oral, Two Times A Day, , Refills: 0 metFORMIN (metFORMIN 500 mg oral tablet) See Instructions, Oral, Two Times A Day, Take 1 tab in AM, 1 tab in PM, Refills: 0 omeprazole 40 mg, Oral, Every Day, Refills: 0 pioglitazone (Actos 45 mg oral tablet) 1 Tab, Oral, Every Day, Refills: 0 sucralfate (sucralfate 1 g oral tablet)1 Tab, Oral, Two Times A Day, 2 in AM 2 in PM, 10 Day(s), Refills: 0 Results No data available for this section Immunizations No data available for this section [...]
--- OUTSIDE RECORDS SUMMARY | 2017-04-13 01:25 | External Medical Summary Rpt ---
Author Author [facility] Organization [facility] Address Unknown Phone Unavailable Care Team Providers Care Goat Driver Name Role Phone Sascha MOORE PCP [phone] Encounter [facility] NAYA [id number] Date(s): 09/17/15 - 02/04/16 [facility] [address] [place] [address]- [phone] Discharge Disposition: OP Self Care or Home Attending Physician: SONALI, ASHKAN Admitting Physician: ASHKAN LYON Referring Physician: Kristin Montejo MD- Gasteroenterologist Reason for Visit Z87.874 Vital Signs No data available for this [...] No data available for this section Results No data available for this section [...]
--- OUTSIDE RECORDS SUMMARY | 2017-04-13 01:25 | External Medical Summary Rpt ---
Author Author [facility] Organization [facility] Address Unknown Phone Unavailable Care Team Providers Care Aircraft Navigator Name Role Phone Robert MOORE PCP [phone] Encounter [facility] NAYA [id number] Date(s): 01/08/16 - 02/01/16 [facility] [address] [place] [address]- Discharge Disposition: OP Self Care or Home Attending Physician: MARYAM VELAZCO MD Admitting Physician: MARYAM VELAZCO MD Referring Physician: MARYAM VELAZCO MD [...] 1.66 x10(3)/uL [1.00-3.90 (02/01/16 3:23 PM) x10(3)/uL] [place] % 6.6 % [3.0-9.0 %] (02/01/16 3:23 PM) [place] # 0.38 K/uL [0.16-1.00 (02/01/16 3:23 PM) [...]
--- OUTSIDE RECORDS SUMMARY | 2017-04-13 01:25 | External Medical Summary Rpt ---
Author Author [facility] Organization [facility] Address Unknown Phone Unavailable Care Team Providers Care Cheesemaker Helper Name Role Phone Robert MOORE PCP [phone] Encounter [facility] NAYA [id number] Date(s): 12/31/15 - 01/08/16 [facility] [address] [place] [address]- Discharge Diagnosis: Aortic stenosis, severe Discharge Disposition: [...] PM) Urine 1.007 (01/02/16 Specific 3:47 PM) Carey [1.005-1.030 ] Urine pH 8.0 (01/02/16 3:47 [...] exam: Palpable bilateral DP pulses.Integumentary: Warm, Dry, [place].Neurologic: Alert, Oriented.Psychiatric: Cooperative, Appropriate mood & affect. General: Alert and oriented, No acute distress. HENT: Normocephalic. Neck: Supple. Respiratory: Lungs are clear to auscultation. Cardiovascular: Normal rate, Regular rhythm, S1, S2. Musculoskeletal: Lower extremity exam: Palpable bilateral DP pulses. Integumentary: Warm, Dry, [place]. Neurologic: Alert, Oriented. Psychiatric: Cooperative, Appropriate mood [...] Title: Cardiology, Author: TRISHA HERNANDEZ Date: 01/08/16 [facility] KATHRIN CHAMBERS Card. Assoc. ICU Daily Progress Note SubjectiveNAD, awake and alert. No complaints of chest pain or SOA. Sinus Bradycardia with HR 50's. VSS. Not on pressors. Health StatusAllergies:Allergic Reactions (Selected)No Known Allergies,Allergies (1) ActiveReactionNo Known AllergiesNone DocumentedCurrent medications: (Selected)Inpatient MedicationsOrderedAmbien: 5 mg, Oral, At Bedtime, PRN: SleepAncef: 2 Gram, 50 mL, 100 mL/Hr, IV Piggyback, PREOPD5/0.450MD61250Rtx.LX 1,000 mL: 30 mL/Hr, IntraVENousDulcolax Laxative: 10 mg, Rectal, Daily, PRN: ConstipationMilk of Magnesia 8% oral suspension: 30 mL, Oral, Daily, PRN: LmitvwmnwrmnWfLf904Upm.LX 500 mL: 50 mL/Hr, IntraVENousNitrostat: 0.4 mg, SubLINgual, Q5Min, PRN: Chest PainNormal Saline Flush: 10 mL, IV Push, [id number]: 75 mg, Oral, DailySenokot S: 1 Tab, Oral, BIDZofran: 4 mg, IV Push, Q6H, PRN: Nausea/Vomitingaspirin: 81 mg, Oral, Dailycalcium gluconate: 1 Gram, 10 mL, 60 mL/Hr, IV Piggyback, Daily, PRN: Other (See Comment)calcium gluconate: 2 Gram, 20 mL, 120 mL/Hr, IV Piggyback, Daily, PRN: Other (See Comment)calcium gluconate: 2 Gram, 20 mL, 120 mL/Hr, IV Piggyback, Q12H, PRN: Other (See Comment)[id number].LX 1,000 mL: 10 mL/Hr, IntraVENouslidocaine 1% injectable [...] right leg / ConfirmedAnemia / SNOMED CT 493875562 / ConfirmedChronic cough / SNOMED CT 230473285 / ConfirmedCHF (congestive heart failure) / SNOMED CT 41753697 / ConfirmedDiabetes II / SNOMED CT 283211382 / ConfirmedCarotid arterial disease / SNOMED CT 1699000053 / ConfirmedDiverticulosis, mild / SNOMED CT 3824096342 / ConfirmedShortness of breath / SNOMED CT 582290144 / Confirmedgerd / ConfirmedGI Bleed / ConfirmedMurmur / SNOMED CT 021614057 / ConfirmedMurmur / SNOMED CT 111367414 / ConfirmedHeart valve / SNOMED CT 107456301 / Confirmedhx, leg swelling / Confirmedhypertension / ConfirmedIron deficiency / SNOMED CT 19858610 / Confirmednerve pain in legs / ConfirmedPeripheral neuropathy, bilateral feet / SNOMED CT 5150672845 / Confirmed,Active Problems (18)3 blood clots from knee to ankle, right leg Anemia Carotid arterial disease CHF (congestive heart failure) Chronic cough Diabetes II Diverticulosis, mild gerd GI Bleed Heart valve hx, leg swelling hypertension Iron deficiency Murmur Murmur nerve pain in legs Peripheral neuropathy, bilateral feet Shortness of breath CHF (congestive heart failure) / SNOMED CT 36698999 / Confirmed Diabetes II / SNOMED CT 180282568 / Confirmed Carotid arterial disease / SNOMED CT 5197858707 / Confirmed Diverticulosis, mild / SNOMED CT 0724177621 / Confirmed Shortness of breath / SNOMED CT 401929314 / Confirmed gerd / Confirmed GI Bleed / Confirmed Murmur / SNOMED CT 603141703 / Confirmed Murmur / SNOMED CT 261251185 / Confirmed Heart valve / SNOMED CT 961483758 / Confirmed hx, leg swelling / Confirmed hypertension / Confirmed Iron deficiency / SNOMED CT 37693722 / Confirmed nerve pain in legs / Confirmed Peripheral neuropathy, bilateral feet / SNOMED CT 5628643788 / Confirmed, Active Problems (18) 3 blood [...] motion, Normal strength, No deformity.Integumentary: Warm, Dry, [place], No rash, Groin sites without bleeding or Hematoma.Neurologic: Alert, Oriented, No focal deficits.Psychiatric: Cooperative, Appropriate mood & affect. Integumentary: Warm, Dry, [place], No rash, Groin sites without bleeding or [...] Artery per Dr. Cunningham 11/16/20157. GERD8. Anemia9. Tbahwnktveb52. HypocalcemiaPLAN:1. Electrolyte replacement per protocol.2. Remove invasive [...] Valve Replacement Type 2 Diabetes Mellitus, Adult, Apvi-oh-Ouiz"
--- OUTSIDE RECORDS SUMMARY | 2017-04-13 01:25 | External Medical Summary Rpt ---
Author Author [facility] Organization [facility] Address Unknown Phone Unavailable Care Team Providers Care Java Web Services Developer Name Role Phone Sascha MOORE PCP [phone] [facility] NAYA [id number] Date(s): 08/26/16 - 08/26/[address] [facility] [place] [address]- [phone] Discharge Disposition: OP Self Care or Home [...]
--- OUTSIDE RECORDS SUMMARY | 2017-04-13 01:25 | External Medical Summary Rpt ---
Author Author [facility] Organization [facility] Address Unknown Phone Unavailable Care Team Providers Care Bar Attendant Name Role Phone Sascha MOORE PCP [phone] [facility] NAYA [id number] Date(s): 09/17/15 - 02/04/16 [facility] [address] [place] [address]- Discharge Disposition: OP Self Care or Home [...]
--- OUTSIDE RECORDS SUMMARY | 2017-04-13 01:26 | External Medical Summary Rpt ---
Author Author [facility] Organization [facility] Address Unknown Phone Unavailable Care Team Providers Care Edging Machine Feeder Name Role Phone Sascha MOORE PCP [phone] Encounter [facility] [id number] Date(s): 09/03/16 - 09/03/16 [facility] [address] [place] [address]- Discharge Disposition: OP Self Care or Home Attending Physician: MARYAM VELAZCO MD-CAR Admitting Physician: MARYAM VELAZCO MD-CAR Referring Physician: MARYAM VELAZCO MD-CAR Reason for Visit ATHSCL HEART DISEASE OF [place] CORONARY ARTERY W/O ANG PCTRS Vital Signs Most recent 1 2 3 to oldest [Reference Range]: Temperature Temporal artery Source scanning (09/03/16 9:38 AM) Temperature Fahrenheit Mode (09/03/16 9:38 AM) Temperature, 98.3 Deg F Fahrenheit (09/03/16 9:38 AM) [96.8-99.7 Deg F] Clinical 36.8 Deg C Temperature, (09/03/16 9:38 AM) C Pulse Method Non-Invasive BP Device (09/03/16 9:38 AM) Peripheral 60 bpm Pulse Rate (09/03/16 9:38 AM) [60-100 bpm] Heart Rate 56 bpm 54 bpm 54 bpm Monitored *LOW* *LOW* *LOW* [60-100 bpm] (09/03/16 4:15 PM) (09/03/16 4:00 PM) (09/03/16 3:45 PM) Respiratory 15 Breaths/Min 12 Breaths/Min 12 Breaths/Min Rate [14-20 (09/03/16 4:15 PM) *LOW* *LOW* Breaths/Min] (09/03/16 4:00 PM) (09/03/16 3:45 PM) Blood Arm, right upper Pressure (09/03/16 9:38 AM) Location Blood Non-Invasive BP Pressure Device (09/03/16 Source 9:38 AM) Blood 123/52 mmHg 124/60 mmHg 131/51 mmHg Pressure (09/03/16 4:15 PM) (09/03/16 4:00 PM) (09/03/16 3:45 PM) [90-140/60-9 0 mmHg] Mean 81 92 77 Arterial (09/03/16 4:15 PM) (09/03/16 4:00 PM) (09/03/16 3:45 PM) Pressure (MAP)-BMDI Oxygen 96 % 97 % 96 % Saturation (09/03/16 4:15 PM) (09/03/16 4:00 PM) (09/03/16 3:45 PM) [94-100 %] Oxygen Room air Room air Room air Therapy Mode (09/03/16 4:15 PM) (09/03/16 4:00 PM) (09/03/16 3:45 PM) Height Stated Source (09/03/16 9:38 AM) Height Entry [place] Format (09/03/16 9:38 AM) Height/Lengt 5 ft h, LATVIAN (09/03/16 9:38 AM) (ft) Height/Lengt 6 Inch h LATVIAN (09/03/16 9:38 AM) CLINICALHEIG 167.64 cm HT (09/03/16 9:38 AM) Weight Standing scale Source (09/03/16 9:38 AM) Weight Entry [place] Format (09/03/16 9:38 AM) Weight 181 lb Czech lb (09/03/16 9:38 AM) CLINICALWEIG 82.27 kg HT (09/03/16 9:38 AM) Body Surface 1.92 m2 Area (BSA) (09/03/16 9:38 AM) Body Mass 29.3 kg/m2 Index *HI* [19.0-24.0 (09/03/16 9:38 AM) kg/m2] [place] Body 59 kg Weight (09/03/16 9:38 AM) Problem List Condition Effective Status Health Informant Dates Status 3 blood 11/16/15 Active clots from knee to ankle, right leg(Confirme d) Anemia(Confi Active patient rmed) Chronic Active cough(Confir med) Chronic Active patient diarrhea(Con firmed) CHF 2013 Active patient (congestive heart failure)(Con firmed) Diabetes Active II(Confirmed ) Carotid Active patient arterial disease(Conf irmed) Diverticulos 1985 Active is, mild(Confirm ed) Shortness of Active patient breath(Confi rmed) Fibroids(Con Active patient firmed) gerd(Confirm Active ed) GERD - Active patient Gastro-esoph ageal reflux disease(Conf irmed) GI Active Bleed(Confir med) Murmur(Confi Active patient rmed) Murmur(Confi Active patient rmed) Heart 07/04/15 Active valve(Confir med) High blood Active patient pressure(Con firmed) hx, leg Active swelling(Con firmed) Hyperlipidem Active patient ia(Confirmed ) hypertension Active (Confirmed) Iron Active deficiency(C onfirmed) nerve pain Active in legs(Confirm ed) Peripheral Active neuropathy, bilateral feet(Confirm ed) Peripheral Active patient vascular disease(Conf irmed) Allergies, Adverse Reactions, Alerts No Known Allergies Medications amLODIPine 5 mg, Oral, Every Day, Refills: 0 aspirin 81 mg, Oral, Every Day, Refills: 0 calcium carbonate 600 mg, Oral, Two Times A Day, Refills: 0 cholecalciferol (Vitamin D3 1000 intl units oral capsule)1 Cap, Oral, Every Day, Refills: 0 dabigatran (Pradaxa) 75 mg, Oral, Two Times A Day, Refills: 0 ferrous sulfate (ferrous sulfate 325 mg (65 mg elemental iron) oral tablet)1 Tab, Oral, every 3rd day, Refills: 0 gabapentin (Neurontin 100 mg oral capsule) 1 Cap, Oral, At Bedtime, Refills: 0 glimepiride (glimepiride 4 mg oral tablet) 1 Tab, Oral, Every Day, Refills: 0 hydroCHLOROthiazide-triamterene (hydrochlorothiazide-triamterene 25 mg-37.5 mg oral tablet)0.5 Tab, Oral, Every Day, Refills: 0 lisinopril (lisinopril 20 mg oral tablet) 1 Tab, Oral, Two Times A Day, , Refills: 0 metFORMIN (metFORMIN 500 mg oral tablet) 1 Tab, , Oral, Two Times A Day, , Refills: 0 omeprazole 40 mg, Oral, Every Day, Refills: 0 pioglitazone (Actos 45 mg oral tablet) 1 Tab, Oral, Every Day, Refills: 0 PRAVAstatin (pravastatin 10 mg oral tablet) 1 Tab, Oral, At Bedtime, Refills: 0 Results BLOOD GASES Most recent 1 to oldest [Reference Range]: tCO2 [place]ián POC 27.0 mmol/L [24.0-29.0 (09/03/16 9:20 AM) mmol/L] GENERAL CHEMISTRY Most recent 1 to oldest [Reference Range]: Sodium POC 141 mmol/L [138-146 (09/03/16 9:20 AM) mmol/L] Potassium 4.0 mmol/L POC [3.5-4.9 (09/03/16 9:20 AM) mmol/L] Chloride POC 100 mmol/L [98-109 (09/03/16 9:20 AM) mmol/L] Anion Gap 19.0 mmol/L POC (09/03/16 9:20 AM) [10.0-20.0 mmol/L] Glucose POC 104 mg/dL [70-105 (09/03/16 9:20 AM) mg/dL] BUN POC 14 mg/dL [8-26 mg/dL] (09/03/16 9:20 AM) HEMATOLOGY Most recent 1 to oldest [Reference Range]: Platelet 242 K/uL Count (09/03/16 9:21 AM) [163-369 K/uL] Hematocrit 35.0 % POC *LOW* [38.0-51.0 (09/03/16 9:20 AM) %] Hemoglobin 11.9 Gram/dL POC *LOW* [12.0-17.0 (09/03/16 9:20 AM) Gram/dL] Immunizations No data available for this section Procedures Procedure Date Related Body Site Diagnosis TAVR Social History Social History Response Type Smoking [...] available for this section Hospital Discharge Instructions Patient EducationAngiogram, Angioplasty, or Stent Placement, Care After (Custom) (Custom) Conscious Sedation, Adult, Care After Groin Site Care (Custom) (Custom) Smoking Cessation
--- OUTSIDE RECORDS SUMMARY | 2017-04-13 01:26 | External Medical Summary Rpt | CCD ---
Author Author , REGINO CARVAJAL Address Unknown Phone [email or web address] Immunization Name Date Rout CVX Reac Dose Comm Prov Is Faci e tion ent ider Refu lity Give sed n Infl 10-0 Intr 135 0.5 Hist D049 No D049 uenz 2-20 amus mL oric 01 01 a, 17 cula al High r Info rmat Dose ion - Sour ce Unsp ecif ied
--- OUTSIDE RECORDS SUMMARY | 2017-04-13 01:26 | External Medical Summary Rpt | CCD ---
Author Author , REGINO CARVAJAL Address Unknown Phone [email or web address] Immunization Name Date Rout CVX Reac Dose Comm Prov Is Faci e tion ent ider Refu lity Give sed n Infl 10-0 Intr 135 0.5 Hist D049 No D049 uenz 2-20 amus mL oric 01 01 a, 17 cula al High r Info rmat Dose ion - Sour ce Unsp ecif ied
--- OUTSIDE RECORDS SUMMARY | 2017-04-13 01:26 | External Medical Summary Rpt ---
Author Author [facility], [facility] Organization [facility] Address Unknown Phone Unavailable
--- OUTSIDE RECORDS SUMMARY | 2017-04-13 01:26 | External Medical Summary Rpt | CCD ---
Author Author [facility] Organization [facility] Address Unknown Phone Unavailable Purpose Continuity of Care Document - through 2016
--- OUTSIDE RECORDS SUMMARY | 2017-04-13 01:26 | External Medical Summary Rpt ---
Author Author [facility] Organization [facility] Address Unknown Phone Unavailable Care Team Providers Care Bulk Driver Name Role Phone Sascha MOORE PCP [phone] Encounter [facility] [id number] Date(s): 09/03/16 - 09/03/16 [facility] [address] [place] [address]- Discharge Disposition: OP Self Care or Home Attending Physician: MARYAM VELAZCO MD-CAR Admitting Physician: MARYAM VELAZCO MD-CAR Referring Physician: MARYAM VELAZCO MD-CAR Reason for Visit ATHSCL HEART DISEASE OF [place] CORONARY ARTERY W/O ANG PCTRS Vital Signs [...] Stated Source (09/03/16 9:38 AM) Height Entry [place] Format (09/03/16 9:38 AM) Height/Lengt 5 ft h, CHINESE (09/03/16 9:38 AM) (ft) Height/Lengt 6 Inch h CH[place]ESE (09/03/16 9:38 AM) CLINICALHEIG 167.64 cm HT (09/03/16 9:38 AM) Weight Standing scale Source (09/03/16 9:38 AM) Weight Entry [place] Format (09/03/16 9:38 AM) Weight 181 lb Bulgarian lb (09/03/16 9:38 AM) CLINICALWEIG 82.27 kg HT (09/03/16 9:38 AM) Body Surface 1.92 m2 Area (BSA) (09/03/16 9:38 AM) Body Mass 29.3 kg/m2 Index *HI* [19.0-24.0 (09/03/16 9:38 AM) kg/m2] [place] Body 59 kg Weight (09/03/16 9:38 AM) [...]
--- OUTSIDE RECORDS SUMMARY | 2017-04-13 01:26 | External Medical Summary Rpt ---
Author Author [facility] Organization [facility] Address Unknown Phone Unavailable Care Team Providers Care Poultry Farm Worker Name Role Phone PITER MOORE PCP [phone] Encounter [facility] [id number] Date(s): 12/17/16 - 01/09/17 [facility] [address] [place] [address]- Discharge Disposition: OP Self Care or Home Attending Physician: MARYAM VELAZCO MD-CAR Admitting Physician: MARYAM VELAZCO MD-CAR Referring Physician: MARYAM VELAZCO MD-CAR Reason for Visit NONRHEUMATIC AORTIC (VALVE) STENOSIS [...] Tab, Oral, At Bedtime, Refills: 0 Results No data available for [...]
--- OUTSIDE RECORDS SUMMARY | 2017-04-13 01:26 | External Medical Summary Rpt | CCD ---
Author Author , [facility] Address Unknown Phone Support Name Relationship Address Phone IQRA Next Of Kin [phone] KAYCEE ALLEN/GORDON [phone] [place] [address] Purpose Continuity of Care Document - 10-26-2012 through 2016 Problems Code Diagnosis DOS Provider Status J04.0 ACUTE LARYNGITIS K31.84 GASTROPARES IS M79.673 PAIN IN UNSPECIFIED FOOT Allergies, Adverse Reactions, Alerts Type Allergy to substance Adverse Reaction to Substance Substance Reaction Severity NO KNOWN ALLERGIES Unknown Unknown Vital Signs 10-27-2012 00:08 Name Value Interpretat Reference Comment ion Range Body 98.4 [degF] Temperature BP 76 mm[Hg] Diastolic BP Systolic 180 mm[Hg] Heart 92 /min Rate/Pulse O2% 98 % Respiratory 16 /min Rate Encounters Encounter Start End Date Code Location Performer Type Date Emergency JENNIFER Wallace MD (ER) 3 23:29 3 00:09 [facility]
--- OUTSIDE RECORDS SUMMARY | 2017-04-13 01:26 | External Medical Summary Rpt | CCD ---
Author Author , [facility] Address Unknown Phone [email or web address] Support Name Relationship Address Phone IQRA Next Of Kin [address] +1 KAYCEE ALLEN/GORDON [phone] [place] [address] Purpose Continuity of Care Document - 10-26-2012 [...] Wallace MD (ER) 3 23:29 3 00:09 [facility]
--- OUTSIDE RECORDS SUMMARY | 2017-04-13 01:26 | External Medical Summary Rpt ---
Author Author [facility] Organization [facility] Address Unknown Phone Unavailable Care Team Providers Care Lime Filter Operator Name Role Phone PITER MOORE PCP [phone] Encounter [facility] NAYA [id number] Date(s): 12/17/16 - 01/09/17 [facility] [place] [address]- Discharge Disposition: OP Self Care or Home [...]
--- NOTE | 2017-04-13 05:11 | RADIOLOGY REPORT PS360 ---
FOOT-LT-3 VIEWS HISTORY: pain ORDERING PHYSICIAN: Esdras Tamayo MD PATIENT AGE: 71 years COMPARISON: None FINDINGS: No fracture or dislocation. No lytic or blastic change. There is normal mineralization.. There are mild osteoarthritic changes of the PIP of the second digit and the DIP of the third and fourth digits. A well-circumscribed small bony density is present over the anterior distal aspect of the talus. Minimal ex ostosis involves the mid aspect of the calcaneus along the plantar surface nonspecific. IMPRESSION: 1. No acute finding. 2. Minimal osteoarthritic change of the toes
--- NOTE | 2017-04-13 05:14 | RADIOLOGY REPORT PS360 ---
CHEST(2 VIEWS-NOT PORTABLE) HISTORY: Cough and congestion cough ORDERING PHYSICIAN: Esdras Tamayo MD PATIENT AGE: 71 years COMPARISON: None available FINDINGS: Status post JOSE MIGUEL. Normal heart size. No evidence of CHF. The lungs are clear without infiltrates, suspicious nodules, or pleural effusions. No acute bony abnormalities. IMPRESSION: No acute finding. Prior JOSE MIGUEL
== END 2017-04-13 01:34 | disposition home or self-care (01) ==
LOC: ER 00:27
PROC: 2W3RX1Z Immobilization of Left Lower Leg using Splint (ICD-10-PCS; principal; 2017-04-13)
DX: J04.0 Acute laryngitis (principal); M79.672 Pain in left foot; K31.84 Gastroparesis; I10 Essential (primary) hypertension; K21.9 Gastro-esophageal reflux disease without esophagitis; E11.9 Type 2 diabetes mellitus without complications; Z87.891 Personal history of nicotine dependence; X50.0XXA Overexertion from strenuous movement or load, initial encounter; Y92.019 Unspecified place in single-family (private) house as the place of occurrence of the external cause